=== PATIENT | female | born 1965 | race Caucasian/White ===

== ENCOUNTER 2016-05-01 17:27 | Emergency (ER) | payer MEDICAID, SELFPAY ==
[~2016-05-01] VITALS: Ht 162.6 cm; Wt 63.5 kg
[~2016-05-01 17:27] MED LIST: QUETIAPINE FUMA25 MG ORAL
[2016-05-01] MEDS ORDERED: Haloperidol 5mg/ml Inj IM ONE (17:30)
[2016-05-01 17:54] VITALS: BP 118/79
[2016-05-01 18:56] LABS: MEAN CORPUSCULAR HEMOGLOBIN 33.9 PG (27.0-31.0); MEAN CORPUSCULAR HGB CONC 34.6 G/DL (32.0-36.0); MEAN CORPUSCULAR VOLUME 98 FL (80-99); MEAN PLATELET VOLUME 7.6 FL (6.5-10.1); PLATELET COUNT 55 K/UL (150-450); RED CELL DISTRIBUTION WIDTH 12.8 % (11.6-14.8); WHITE BLOOD COUNT 7.9 K/UL (4.8-10.8)
[2016-05-01 19:16] LABS: ACETAMINOPHEN < 10 ug/mL (10-30); ALANINE AMINOTRANSFERASE 40 U/L (3-33); ALBUMIN/GLOBULIN RATIO 1.4 (1.0-2.7); ALCOHOL < 10 mg/dL; ANION GAP 28 (5-15); ASPARTATE AMINO TRANSFERASE 152 U/L (5-40); CALCIUM 9.8 mg/dL (8.6-10.2); CARBON DIOXIDE 24 mEQ/L (20-30); CHLORIDE 83 mEQ/L (98-107); CREATININE 0.9 mg/dL (0.5-0.9); GLOMERULAR FILTRATION RATE > 60 mL/min (>60); HEMOLYSIS 5; SODIUM 135 mEQ/L (135-145); TOTAL PROTEIN 7.6 g/dL (6.6-8.7)
[2016-05-01 19:36] LABS: POTASSIUM 2.4 mEQ/L (3.4-4.9)
[2016-05-01 19:55] LABS: BILIRUBIN,DIRECT 0.3 mg/dL (0.1-0.3)
[2016-05-01 19:57] VITALS: BP 120/69
[2016-05-01 19:58] LABS: BAND NEUTROPHILS % (MANUAL) 3 % (0-8); LYMPHOCYTES % (MANUAL) 16 % (20-45); NEUTROPHILS % (MANUAL) 74 % (45-75); NUCLEATED RED BLOOD CELLS 1 /100 WBC; TOTAL CELLS COUNTED 100
[2016-05-01 20:00] LABS: BASOPHILS % (MANUAL) 0 % (0-2); EOSINOPHILS % (MANUAL) 0 % (0-3); MACROCYTES 1+; PLATELET ESTIMATE DECREASED; PLATELET MORPHOLOGY NORMAL; POLYCHROMASIA 1+
[2016-05-01] MEDS ORDERED: KCl 10% 40mEq/30ml liquid ORAL STA (22:31)
--- NOTE | 2016-05-01 22:45 | Emergency Room Report ---
History of Present Illness General Chief Complaint: General Complaint Source: EMS Present Illness HPI This is a 50-year-old female that was brought in by ambulance for psych evaluation. Patient was seen at a Hospital where she removed her pants and underwear it and was sitting down on the bed smiling at all no worse. Vision has been calling for a unknown person continuously and arguing amongst herself. Paramedics state that the patient has a prescription of Seroquel on her and that there is no additional history available. Allergies: Coded Allergies: No Known Allergies (Unverified , 03/11/14) Patient History Past Medical History: see triage record Past Surgical History: unable to obtain Pertinent Family History: unable to obtain Last Menstrual Period: Unknown Now: No Reviewed Nursing Documentation: PMH: Agreed, PSxH: Agreed Nursing Documentation-PMH Past Medical History: No History, Except For History Of Psychiatric Problem: Yes Review of Systems All Other Systems: negative except mentioned in HPI Physical Exam Vital Signs Date Time Temp Pulse Resp B/P Pulse Ox O2 Delivery O2 Flow Rate FiO2 05/01/16 17:21 98.1 101 16 118/79 100 Room Air Sp02 EP Interpretation: reviewed, normal General Appearance: no apparent distress, alert, GCS 15, non-toxic, other - Confused and yelling Head: normocephalic, atraumatic Eyes: bilateral eye PERRL, bilateral eye normal inspection ENT: hearing grossly normal, normal pharynx, no angioedema, normal voice Neck: full range of motion, supple/symm/no masses Respiratory: chest non-tender, lungs clear, normal breath sounds, speaking full sentences Cardiovascular #1: regular rate, rhythm, no edema Musculoskeletal: back normal, gait/station normal Neurologic: alert, responsive Psychiatric: other - Patient is dilusional with labile affect and anxious mood. Skin: normal color, no rash, warm/dry, well hydrated Medical Decision Making PA Attestation Dr. Escobar my supervising physician with whom patient management has been discussed with. Diagnostic Impression: Primary Impression: Psychosis Qualified Codes: F29 - Unspecified psychosis not due to a substance or known physiological condition ER Course Pt. presents to the ED c/o psych evaluation Ddx considered but are not limited to schizophrenia, depression, CVA, PNA Vital signs: are WNL, pt. is afebrile H&PE are most consistent with acute psychosis of unknown origin ORDERS: Labs, EKG ED INTERVENTIONS: Haldol, Potassium supplementation Patient is being kept for observation and care has been transferred to Dr. Escobar. Laboratory Tests Test 05/01/16 18:40 White Blood Count 7.9 K/UL (4.8-10.8) Red Blood Count 3.50 M/UL (4.20-5.40) L Hemoglobin 11.9 G/DL (12.0-16.0) L Hematocrit 34.4 % (37.0-47.0) L Mean Corpuscular Volume 98 FL (80-99) Mean Corpuscular Hemoglobin 33.9 PG (27.0-31.0) H Mean Corpuscular Hemoglobin Concent 34.6 G/DL (32.0-36.0) Red Cell Distribution Width 12.8 % (11.6-14.8) Platelet Count 55 K/UL (150-450) L Mean Platelet Volume 7.6 FL (6.5-10.1) Neutrophils (%) (Auto) % (45.0-75.0) Lymphocytes (%) (Auto) % (20.0-45.0) Monocytes (%) (Auto) % (1.0-10.0) Eosinophils (%) (Auto) % (0.0-3.0) Basophils (%) (Auto) % (0.0-2.0) Differential Total Cells Counted 100 Neutrophils % (Manual) 74 % (45-75) Lymphocytes % (Manual) 16 % (20-45) L Monocytes % (Manual) 7 % (1-10) Eosinophils % (Manual) 0 % (0-3) Basophils % (Manual) 0 % (0-2) Band Neutrophils 3 % (0-8) Nucleated Red Blood Cells 1 /100 WBC Platelet Estimate Decreased L Platelet Morphology Normal Polychromasia 1+ Macrocytosis 1+ Sodium Level 135 mEQ/L (135-145) Potassium Level 2.4 mEQ/L (3.4-4.9) *L Chloride Level 83 mEQ/L (98-107) L Carbon Dioxide Level 24 mEQ/L (20-30) Anion Gap 28 (5-15) H Blood Urea Nitrogen 15 mg/dL (7-23) Creatinine 0.9 mg/dL (0.5-0.9) Estimate Glomerular Filtration Rate > 60 mL/min (>60) Glucose Level 61 mg/dL (74-106) L Calcium Level 9.8 mg/dL (8.6-10.2) Total Bilirubin 1.6 mg/dL (0.0-1.2) H Direct Bilirubin 0.3 mg/dL (0.1-0.3) Aspartate Amino Transferase (AST) 152 U/L (5-40) H Alanine Aminotransferase (ALT) 40 U/L (3-33) H Alkaline Phosphatase 89 U/L (35-104) Total Protein 7.6 g/dL (6.6-8.7) Albumin 4.5 g/dL (3.5-5.2) Globulin 3.1 g/dL Albumin/Globulin Ratio 1.4 (1.0-2.7) Salicylates Level < 1 mg/dL (10-30) L Acetaminophen Level < 10 ug/mL (10-30) L Serum Alcohol < 10 mg/dL Last Vital Signs Date Time Temp Pulse Resp B/P Pulse Ox O2 Delivery O2 Flow Rate FiO2 05/01/16 19:57 98.1 86 15 120/69 100 Room Air Disposition: PLACE IN OBSERVATION Condition: Stable Signed Out To: Dr. Eric Escobar Referrals: NOT CHOSEN IPA/,REFERRING (PCP) RAJEEV SANTOS May 01, 2016 22:45
[2016-05-01 23:25] VITALS: BP 118/67
[2016-05-02 01:10] VITALS: BP 124/67
[2016-05-02 03:15] VITALS: BP 119/67
[2016-05-02 05:00] VITALS: BP 119/67
[2016-05-02 06:07] LABS: ANION GAP 23 (5-15); CALCIUM 9.6 mg/dL (8.6-10.2); CARBON DIOXIDE 26 mEQ/L (20-30); CHLORIDE 85 mEQ/L (98-107); CREATININE 0.7 mg/dL (0.5-0.9); GLOMERULAR FILTRATION RATE > 60 mL/min (>60); HEMOLYSIS 6; POTASSIUM 3.6 mEQ/L (3.4-4.9); SODIUM 134 mEQ/L (135-145)
[2016-05-02 08:27] VITALS: BP 106/76
[2016-05-02 11:12] VITALS: BP 113/76
[2016-05-02 11:30] VITALS: BP 113/76
[2016-05-02] MEDS ORDERED: LORazepam 1mg tab ORAL ONE (11:30)
--- NOTE | 2016-05-06 11:42 | Cardiology Report ---
APPROVED REPORT EKG Measurement Heart [id number] Normal sinus rhythm Prolonged QT Abnormal ECG
== END 2016-05-02 12:00 ==
LOC: EDBD 17:27 → EMR 20:07 → CMPBEDREQ 05-02 10:23 → EMR 05-02 12:00
DX: F29 Unspecified psychosis not due to a substance or known physiological condition (principal); Z86.59 Personal history of other mental and behavioral disorders
CPT/HCPCS: 36415; 80048; 80053; 80300; 82248; 84132; 85007; 85025; 93005; 96372; 96374; 99284; G0480; J1630; J3480; 80329; J8499